=== PATIENT | male | born 1945 | race Caucasian/White ===

== ENCOUNTER 2019-06-18 08:56 | Outpatient (CLI) | payer MEDICARE, BC, SELFPAY ==
[2019-06-18 09:07] VITALS: BP 122/71; PULSE 58; RESP 14; TEMP 36.5; O2SAT 96
[2019-06-18] MEDS: Lactated Ringers 1,000 ML 80 ML IV (09:26)
[2019-06-18] MEDS: fentaNYL 100 MCG/2 ML VIAL IVP ×3 (09:32→09:52)
[2019-06-18] MEDS: Midazolam 2 MG/2 ML VIAL IVP (09:32)
[2019-06-18 10:06] VITALS: BP 127/79; PULSE 63; RESP 18; O2SAT 98
--- NOTE | 2019-06-18 10:12 | PDOC.PAIN ---
[facility] Clinic Procedure Note Procedure Note Procedure Note: Right Knee Radiofrequency with Coolief Machine PROCEDURE NOTE Date of Service: June 18, 2019 Patient: KATHARINA APONTE Provider: Rohit Perez DO, MPH Pre Operative Diagnosis: Right knee osteoarthritis/ Right knee pain Post Operative Diagnosis: Same PROCEDURE: 1. Right Superolateral genicular branch from the vastus lateralis 2. Right Superomedial genicular branch from the vastus medialis 3. Right Inferomedial genicular branch from the saphenous nerve 4. Right Terminal branch of the nerve vastus intermedius KATHARINA APONTE was brought into brought to the procedure room and placed on the exam table in a comfortable supine position. The place for needle placement was obtained by manual palpation with radiographic confirmation. The sterile field was prepared by chloroprep and sterile drapes. Local anesthesia superficial and deep was provided by local infiltration of 2% Lidocaine. A 17g 50 mm radiofrequency introducer needle with a 4mm active tip was placed overlying the right knee joint and using fluoroscopic guidance the needle was advanced to a bony endpoint on the superiolateral portion of the femoral condyle of the Right knee. A second needle was advanced to a bony endpoint on the superiomedial portion of the femoral condyle. A third needle was then placed over the inferiomedial portion of the tibial condyle until a bony endpoint was met. A fourth needle was place lateral to medial at the Terminal branch of the right vastus intermedius nerve. Attempted aspiration yielded no blood. Lateral x-ray views showed all the needles at 50% depth of the femur and tibia. Motor stimulation was tested ad 2.0 volts with no leg movement. Images were saved in AP and lateral. 1 cc of 2% Lidocaine was injected at each segmental area. Then a radiofrequency ablation of each of the geniculate nerves were done at 80 degrees Celsius for 2 minutes and 30 seconds each. At the end of the procedure I injected 1 cc of 0.5% Bupivacaine and 1/4 cc of Depomedrol (40 mg/cc). The needles were withdrawn. POST PROCEDURE EVALUATION: Follow up plans and appointments were discussed with the KATHARINA . Post procedure instruction was given as documented in nursing documentation and having met discharge criteria, [facility]. COMMENTS: No complications. F/U with our office as needed. I personally performed this entire procedure. Rohit Perez DO, MPH Attending Physician
[2019-06-18] MEDS: Lidocaine 2% Pres-Free 5 ML VIAL IJ (10:34)
[2019-06-18] MEDS: methylPREDNISolone ACETATE 40 MG/ML VIAL IJ (10:34)
[2019-06-18] MEDS: Bupivacaine 0.5% Pres-Free 10 ML VIAL IJ (10:35)
--- NOTE | 2019-06-18 10:42 | DI.RAD_ITS ---
EXAM: XR PAIN CLINIC FLUORO JOINT INJECTION RT KNEE PAIN CLINICAL HISTORY: Right Genicular RFA. TECHNIQUE: Fluoroscopy was provided for the referring physician for guidance with performing injecti on procedure. COMPARISON: No exams were available for comparison FINDINGS: Please see procedure note for details. FLUORO TIME: 64.8 seconds
== END 2019-06-18 09:16 ==
PROVIDERS: Visit Provider Preventive Medicine Occupational Medicine
DX: M17.11 Unilateral primary osteoarthritis, right knee (principal); M25.561 Pain in right knee
CPT/HCPCS: 64640; 77002; J1030; J2250; J3010